=== PATIENT | male | born 1980 | race African-American/Black ===

== ENCOUNTER 2023-02-09 02:45 | Emergency (ER) | payer OTHER, SELFPAY ==
[2023-02-09 03:11] LABS: Actual Bicarbonate (HCO3a) 25.9 mEq/L (22-28); Base Excess (BEa) -2.2 mEq/L (-2.0 to +3.0); CO2 Tension 57.6 mmHg (35.0-45.0); Calcium, Ionized (arterial) 1.23 mmol/L (1.12-1.30); Carboxyhemoglobin (COHb) 0.6 gm% (0.0-3.0); Hematocrit-ABG 49 % (42.0-52.0); Hemoglobin (Hb) 16.5 g/dL (14.0-18.0); O2 Tension (PaO2), arterial 209.9 mmHg (80.0-100.0); Potassium - ABG Lab 3.67 mmol/L (3.70-5.30); Puncture Site RRA; pH, Arterial 7.271 (7.35-7.45)
[2023-02-09 03:27] LABS: #Monocytes 1.1 10x3/uL (0.0-1.1); #Neutrophils 13.2 10x3/uL (1.5-8.4); %Basophils 0.2 % (0.0-2.0); %Eosinophils 0.1 % (0.0-6.0); %Lymphocytes 12.3 % (18.0-47.0); %Monocytes 6.8 % (0.0-10.0); %Neutrophils 80.2 % (40.0-75.0); Hematocrit 50.1 % (38.8-50.0); Hemoglobin 16.2 g/dL (13.5-17.5); Mean Corpuscular HGB CONC 32.3 g/dL (32.0-36.0); Mean Corpuscular Hemoglobin 31.6 pg (27.0-33.0); Mean Corpuscular Volume 97.9 fl (81.2-95.1); Mean Platelet Volume 11.7 fl (7.4-10.4); Platelet Count 169 10x3/uL (150-450); Red Blood Cell (RBC) Count 5.12 10x6/uL (4.32-5.72); White Blood Cell (WBC) Count 16.4 10x3/uL (3.5-10.5)
[2023-02-09 03:37] LABS: SARS-CoV-2 NAA Rapid Test Not Detected (NotDetected)
[2023-02-09 03:48] LABS: Troponin I 0.011 ng/mL (< 0.028)
[2023-02-09 03:50] LABS: ALT (SGPT) 17 U/L (8-55); AST (SGOT) 29 U/L (5-34); Albumin 4.9 g/dL (3.5-5.0); Alkaline Phosphatase 57 U/L (40-110); Anion Gap 17 mmol/L (10-20); BUN (Urea Nitrogen) 17 mg/dL (8.9-20.6); Bilirubin, Total 0.5 mg/dL (0.2-1.2); Calc. Creatinine Clearance 0 mL/min (70-130); Calcium 9.5 mg/dL (7.8-10.44); Carbon Dioxide 27 mmol/L (22-29); Chloride 101 mmol/L (98-107); Estimated GFR 69; Globulin 3.7 g/dL (2.4-3.5); Glucose 141 mg/dL (70-105); Lipase 13 U/L (8-78); Potassium 4.4 mmol/L (3.5-5.1); Protein, Total 8.6 g/dL (6.0-8.3); Sodium 141 mmol/L (136-145)
[2023-02-09] MEDS ORDERED: Acetaminophen 500 MG TAB ONE (05:05)
[2023-02-09] MEDS ORDERED: Iopamidol 370 76% 100 ML VIAL ONE (09:50)
== END 2023-02-09 05:19 | disposition home or self-care (01) ==
LOC: CSHERS 02:45
DX: J18.9 Pneumonia, unspecified organism (principal); R11.2 Nausea with vomiting, unspecified
CPT/HCPCS: 36600; 71045; 71275; 74177; 80053; 82805; 83690; 83735; 83880; 84484; 85025; 93005; 94760; Q9967; U0002

== ENCOUNTER 2023-07-14 10:37 | Inpatient (IN) | payer OTHER ==
[2023-07-14] MEDS ORDERED: Ipratropium/Albuterol 3 ML NEB ONE (11:09)
[2023-07-14] MEDS ORDERED: predniSONE 20 MG TAB ONE (11:09)
[2023-07-14] MEDS ORDERED: Magnesium 2 GM/50 ML BAG (IN WATER) ONE (11:10)
[2023-07-14] MEDS ORDERED: Azithromycin 500 MG VIAL ONE (11:10)
[2023-07-14] MEDS ORDERED: cefTRIAXone (ROCEPHIN) 1 GM VIAL ONE (11:10)
[2023-07-14 11:11] LABS: #Basophils 0.1 10x3/uL (0.0-0.2); #Monocytes 1.8 10x3/uL (0.0-1.1); #Neutrophils 13.9 10x3/uL (1.5-8.4); %Basophils 0.4 % (0.0-2.0); %Eosinophils 0.1 % (0.0-6.0); %Lymphocytes 11.7 % (18.0-47.0); %Monocytes 10.2 % (0.0-10.0); %Neutrophils 77.3 % (40.0-75.0); Hematocrit 42.6 % (38.8-50.0); Hemoglobin 14.2 g/dL (13.5-17.5); Mean Corpuscular HGB CONC 33.3 g/dL (32.0-36.0); Mean Corpuscular Hemoglobin 30.9 pg (27.0-33.0); Mean Corpuscular Volume 92.8 fl (81.2-95.1); Mean Platelet Volume 11.3 fl (7.4-10.4); Platelet Count 193 10x3/uL (150-450); RBC Distribution Width 12.8 % (11.5-14.5); Red Blood Cell (RBC) Count 4.59 10x6/uL (4.32-5.72)
[2023-07-14] MEDS ORDERED: Iopamidol 370 76% 100 ML VIAL ONE (11:29)
[2023-07-14 11:33] LABS: ALT (SGPT) 35 U/L (8-55); AST (SGOT) 35 U/L (5-34); Albumin 4.1 g/dL (3.5-5.0); Alkaline Phosphatase 82 U/L (40-110); Anion Gap 16 mmol/L (10-20); BUN (Urea Nitrogen) 13 mg/dL (8.9-20.6); Bilirubin, Total 1.5 mg/dL (0.2-1.2); Calc. Creatinine Clearance 0 mL/min (70-130); Calcium 8.6 mg/dL (7.8-10.44); Carbon Dioxide 24 mmol/L (22-29); Chloride 102 mmol/L (98-107); Estimated GFR 88; Globulin 3.3 g/dL (2.4-3.5); Glucose 116 mg/dL (70-105); Potassium 3.9 mmol/L (3.5-5.1); Protein, Total 7.4 g/dL (6.0-8.3); Sodium 138 mmol/L (136-145)
[2023-07-14 11:35] LABS: Troponin I Less than 0.010 ng/mL (< 0.028)
[2023-07-14 12:07] LABS: SARS-CoV-2 NAA Rapid Test Not Detected (NotDetected)
[2023-07-14] MEDS ORDERED: Ipratropium/Albuterol 3 ML NEB NEB PRN (12:55)
[2023-07-14 13:53] LABS: Free T4 (Free Thyroxine) 1.03 ng/dL (0.70-1.48); Thyroid Stimulating Hormone 3.6467 uIU/mL (0.35-4.94)
[2023-07-14] MEDS: Metoprolol Tartrate 25 MG TAB PO SCH (22:18)
[2023-07-14] MEDS: Acetaminophen 325 MG TAB PO PRN (22:18)
[2023-07-14] MEDS: Guaifenesin DM 100-10/5 ML UDCUP PO PRN (22:19)
[2023-07-15 00:20] VITALS: BMI 45.1
[2023-07-15 04:42] LABS: #Monocytes 1.5 10x3/uL (0.0-1.1); #Neutrophils 11.4 10x3/uL (1.5-8.4); %Basophils 0.1 % (0.0-2.0); %Lymphocytes 11.8 % (18.0-47.0); %Monocytes 9.9 % (0.0-10.0); %Neutrophils 77.7 % (40.0-75.0); Hematocrit 42.4 % (38.8-50.0); Hemoglobin 13.7 g/dL (13.5-17.5); Mean Corpuscular HGB CONC 32.3 g/dL (32.0-36.0); Mean Corpuscular Hemoglobin 30.9 pg (27.0-33.0); Mean Corpuscular Volume 95.5 fl (81.2-95.1); Mean Platelet Volume 11.4 fl (7.4-10.4); Platelet Count 208 10x3/uL (150-450); RBC Distribution Width 13.2 % (11.5-14.5); Red Blood Cell (RBC) Count 4.44 10x6/uL (4.32-5.72); White Blood Cell (WBC) Count 14.7 10x3/uL (3.5-10.5)
[2023-07-15 04:53] LABS: ALT (SGPT) 33 U/L (8-55); AST (SGOT) 30 U/L (5-34); Albumin 3.9 g/dL (3.5-5.0); Alkaline Phosphatase 85 U/L (40-110); Anion Gap 13 mmol/L (10-20); BUN (Urea Nitrogen) 21 mg/dL (8.9-20.6); Bilirubin, Total 0.8 mg/dL (0.2-1.2); Calc. Creatinine Clearance 141 mL/min (70-130); Carbon Dioxide 27 mmol/L (22-29); Chloride 103 mmol/L (98-107); Estimated GFR 80; Globulin 3.8 g/dL (2.4-3.5); Glucose 137 mg/dL (70-105); Protein, Total 7.7 g/dL (6.0-8.3); Sodium 139 mmol/L (136-145)
[2023-07-15] MEDS: Levothyroxine Sodium 100 MCG TAB PO SCH (05:56)
[2023-07-15] MEDS: Guaifenesin DM 100-10/5 ML UDCUP PO PRN ×3 (09:36→22:14)
[2023-07-15] MEDS: predniSONE 20 MG TAB PO SCH (09:37)
[2023-07-15] MEDS: Sertraline 25 MG TAB PO SCH (09:37)
[2023-07-15] MEDS: Metoprolol Tartrate 25 MG TAB PO SCH ×2 (09:37→22:14)
[2023-07-15] MEDS: NIFEdipine XL 30 MG ER.TAB PO SCH (09:38)
[2023-07-15 11:01] LABS: Strep pneumo Urine Ag NEGATIVE (NEGATIVE)
[2023-07-15] MEDS: cefTRIAXone\\ROCEPHIN 1 GM in Sodium Chloride 0.9% 100 ML IVPB SCH (11:03)
[2023-07-15] MEDS: Azithromycin 500 MG in Sodium Chloride 0.9% 250 ML 250 ML IVPB SCH (13:29)
[2023-07-15] MEDS: Ipratropium/Albuterol 3 ML NEB NEB SCH ×3 (13:40→19:07)
[2023-07-15] MEDS: Acetaminophen 325 MG TAB PO PRN (22:14)
[2023-07-16] MEDS: Guaifenesin DM 100-10/5 ML UDCUP PO PRN ×3 (01:28→21:44)
[2023-07-16] MEDS: Calcium Carbonate 500 MG ChewTAB PO PRN ×2 (01:30→21:42)
[2023-07-16 04:26] LABS: #Basophils 0.1 10x3/uL (0.0-0.2); #Monocytes 1.5 10x3/uL (0.0-1.1); #Neutrophils 10.8 10x3/uL (1.5-8.4); %Basophils 0.3 % (0.0-2.0); %Lymphocytes 19.1 % (18.0-47.0); %Monocytes 9.8 % (0.0-10.0); %Neutrophils 69.4 % (40.0-75.0); Hematocrit 42.7 % (38.8-50.0); Hemoglobin 13.6 g/dL (13.5-17.5); Mean Corpuscular HGB CONC 31.9 g/dL (32.0-36.0); Mean Corpuscular Hemoglobin 30.8 pg (27.0-33.0); Mean Corpuscular Volume 96.6 fl (81.2-95.1); Mean Platelet Volume 11.3 fl (7.4-10.4); Platelet Count 227 10x3/uL (150-450); RBC Distribution Width 13.4 % (11.5-14.5); Red Blood Cell (RBC) Count 4.42 10x6/uL (4.32-5.72); White Blood Cell (WBC) Count 15.5 10x3/uL (3.5-10.5)
[2023-07-16 04:36] LABS: Anion Gap 12 mmol/L (10-20); BUN (Urea Nitrogen) 20 mg/dL (8.9-20.6); Calc. Creatinine Clearance 180 mL/min (70-130); Calcium 8.8 mg/dL (7.8-10.44); Carbon Dioxide 28 mmol/L (22-29); Chloride 105 mmol/L (98-107); Estimated GFR 107; Glucose 145 mg/dL (70-105); Potassium 3.8 mmol/L (3.5-5.1); Sodium 141 mmol/L (136-145)
[2023-07-16] MEDS: Acetaminophen 325 MG TAB PO PRN ×3 (05:11→21:43)
[2023-07-16] MEDS: Levothyroxine Sodium 100 MCG TAB PO SCH (05:11)
[2023-07-16] MEDS: Ipratropium/Albuterol 3 ML NEB NEB SCH ×4 (07:20→19:40)
[2023-07-16] MEDS: Sertraline 25 MG TAB PO SCH (09:27)
[2023-07-16] MEDS: NIFEdipine XL 30 MG ER.TAB PO SCH (09:27)
[2023-07-16] MEDS: Metoprolol Tartrate 25 MG TAB PO SCH ×2 (09:27→21:44)
[2023-07-16] MEDS: predniSONE 20 MG TAB PO SCH (09:48)
[2023-07-16] MEDS: cefTRIAXone\\ROCEPHIN 1 GM in Sodium Chloride 0.9% 100 ML IVPB SCH (11:21)
[2023-07-16] MEDS: Azithromycin 500 MG in Sodium Chloride 0.9% 250 ML 250 ML IVPB SCH (12:19)
[2023-07-17 04:21] LABS: #Basophils 0.1 10x3/uL (0.0-0.2); #Monocytes 1.2 10x3/uL (0.0-1.1); #Neutrophils 8.2 10x3/uL (1.5-8.4); %Basophils 0.5 % (0.0-2.0); %Eosinophils 0.1 % (0.0-6.0); %Lymphocytes 23.7 % (18.0-47.0); %Monocytes 8.9 % (0.0-10.0); Anion Gap 13 mmol/L (10-20); BUN (Urea Nitrogen) 20 mg/dL (8.9-20.6); Calc. Creatinine Clearance 162 mL/min (70-130); Calcium 9.2 mg/dL (7.8-10.44); Carbon Dioxide 28 mmol/L (22-29); Chloride 105 mmol/L (98-107); Estimated GFR 95; Glucose 99 mg/dL (70-105); Hematocrit 42.7 % (38.8-50.0); Hemoglobin 13.3 g/dL (13.5-17.5); Mean Corpuscular HGB CONC 31.1 g/dL (32.0-36.0); Mean Corpuscular Hemoglobin 30.2 pg (27.0-33.0); Mean Platelet Volume 10.9 fl (7.4-10.4); Platelet Count 250 10x3/uL (150-450); Potassium 4.4 mmol/L (3.5-5.1); RBC Distribution Width 13.6 % (11.5-14.5); Sodium 142 mmol/L (136-145); White Blood Cell (WBC) Count 12.9 10x3/uL (3.5-10.5)
[2023-07-17] MEDS: Acetaminophen 325 MG TAB PO PRN ×2 (05:39→20:28)
[2023-07-17] MEDS: Levothyroxine Sodium 100 MCG TAB PO SCH (05:39)
[2023-07-17] MEDS: Guaifenesin DM 100-10/5 ML UDCUP PO PRN ×3 (05:39→20:21)
[2023-07-17] MEDS: Ipratropium/Albuterol 3 ML NEB NEB SCH ×3 (08:00→19:37)
[2023-07-17] MEDS: Sertraline 25 MG TAB PO SCH (09:01)
[2023-07-17] MEDS: NIFEdipine XL 30 MG ER.TAB PO SCH (09:01)
[2023-07-17] MEDS: Metoprolol Tartrate 25 MG TAB PO SCH ×2 (09:01→20:20)
[2023-07-17] MEDS: predniSONE 20 MG TAB PO SCH (09:01)
[2023-07-17] MEDS: cefTRIAXone\\ROCEPHIN 1 GM in Sodium Chloride 0.9% 100 ML IVPB SCH (12:14)
[2023-07-17] MEDS: Azithromycin 500 MG in Sodium Chloride 0.9% 250 ML 250 ML IVPB SCH (12:31)
[2023-07-17] MEDS: Calcium Carbonate 500 MG ChewTAB PO PRN (20:21)
[2023-07-18] MEDS: Acetaminophen 325 MG TAB PO PRN (02:03)
[2023-07-18] MEDS: Guaifenesin DM 100-10/5 ML UDCUP PO PRN (02:03)
[2023-07-18 04:07] LABS: #Basophils 0.1 10x3/uL (0.0-0.2); #Eosinphils 0.1 10x3/uL (0.0-0.5); %Basophils 0.6 % (0.0-2.0); %Eosinophils 0.6 % (0.0-6.0); %Lymphocytes 29.7 % (18.0-47.0); %Monocytes 8.2 % (0.0-10.0); %Neutrophils 58.3 % (40.0-75.0); Hemoglobin 12.9 g/dL (13.5-17.5); Mean Corpuscular HGB CONC 31.5 g/dL (32.0-36.0); Mean Corpuscular Hemoglobin 30.6 pg (27.0-33.0); Mean Corpuscular Volume 97.2 fl (81.2-95.1); Mean Platelet Volume 10.9 fl (7.4-10.4); Platelet Count 261 10x3/uL (150-450); RBC Distribution Width 13.4 % (11.5-14.5); Red Blood Cell (RBC) Count 4.22 10x6/uL (4.32-5.72)
[2023-07-18] MEDS: Levothyroxine Sodium 100 MCG TAB PO SCH (06:06)
[2023-07-18] MEDS: Ipratropium/Albuterol 3 ML NEB NEB SCH ×3 (07:07→15:49)
[2023-07-18] MEDS: predniSONE 20 MG TAB PO SCH (08:29)
[2023-07-18] MEDS: NIFEdipine XL 30 MG ER.TAB PO SCH (08:30)
[2023-07-18] MEDS: Metoprolol Tartrate 25 MG TAB PO SCH (08:30)
[2023-07-18] MEDS: Sertraline 25 MG TAB PO SCH (08:30)
[2023-07-18 11:41] VITALS: BP 136/84; TEMP 97.7
[2023-07-18] MEDS: cefTRIAXone\\ROCEPHIN 1 GM in Sodium Chloride 0.9% 100 ML IVPB SCH (12:34)
[2023-07-18] MEDS: Azithromycin 500 MG in Sodium Chloride 0.9% 250 ML 250 ML IVPB SCH (13:24)
== END 2023-07-18 16:08 | disposition home or self-care (01) | DRG 194 ==
LOC: CSHERS 10:37 → CSHERHOLD 12:12 → CSHTELE 19:53
PROVIDERS: ADMIT Internal Medicine; ATTEND Internal Medicine
PROC: 5A09357 Assistance with Respiratory Ventilation, Less than 24 Consecutive Hours, Continuous Positive Airway Pressure (ICD-10-PCS; principal; 2023-07-18)
DX: J18.9 Pneumonia, unspecified organism (principal); J96.11 Chronic respiratory failure with hypoxia; Z68.42 Body mass index [BMI] 45.0-49.9, adult; I10 Essential (primary) hypertension; E03.9 Hypothyroidism, unspecified; F32.A Depression, unspecified; E66.01 Morbid (severe) obesity due to excess calories; G47.33 Obstructive sleep apnea (adult) (pediatric); Z11.52 Encounter for screening for COVID-19
CPT/HCPCS: 36415; 36416; 71045; 71046; 71275; 80048; 80053; 83605; 83880; 84439; 84443; 84484; 85025; 85379; 87040; 87070; 87205; 87449; 93005; 94640; 94760; 94762; 96374; 96375; J0456; J0696; J3475; J3490; J7050; J7512; J7620; Q9967